=== PATIENT | female | born 1980 | race Two or more races ===

== ENCOUNTER 2023-03-20 10:44 | Emergency (ER) | payer MEDICAID, OTHER ==
[~2023-03-20] VITALS: Ht 157.5 cm; Wt 108.0 kg
[2023-03-20 11:29] LABS: Basophils # (auto) 0 10 ^3/uL (0-0.2); Basophils % (auto) 0.4 % (0.0-2.0); Eosinophils # (auto) 0.1 10 ^3/uL (0-0.8); Eosinophils % (auto) 1.9 % (0.0-7.0); Hematocrit 37.9 % (36.0-46.0); Hemoglobin 12.5 g/dL (12.2-16.2); Lymphocytes # (auto) 1.5 10 ^3/uL (0.4-5.4); Lymphocytes % (auto) 18.7 % (10.0-50.0); Mean Corpuscular Hemoglobin 27.4 pg (28.0-32.0); Mean Corpuscular Volume 83.2 fL (80.0-100.0); Monocytes # (auto) 0.5 10 ^3/uL (0-1.3); Neutrophils # (auto) 5.7 10 ^3/uL (1.6-8.6); Nucleated Red Blood Cells % 0.1 %; Red Blood Cells 4.55 10^6/uL (4.0-5.20); White Blood Cell 7.8 10^3/uL (4.4-10.8)
[2023-03-20] MEDS ORDERED: clonazePAM 0.5 MG TAB PO ONE (11:30)
[2023-03-20 11:43] LABS: Urine Bacteria None Seen /hpf (None Seen); Urine WBC None Seen /hpf (0 - 5)
[2023-03-20 11:57] LABS: Albumin 3.3 g/dL (3.4-5.0); Calcium 8.2 mg/dL (8.5-10.1); Potassium 3.7 mmol/L (3.5-5.1)
[2023-03-20 12:00] LABS: BUN/Creatinine Ratio 17.2 (10.0-20.0); Bilirubin, Total 0.4 mg/dL (0.2-1.0); Total Protein 7.2 g/dL (6.4-8.2)
[2023-03-20 12:11] LABS: Urine Specific Gravity 1.025 (1.001-1.035)
[2023-03-20 12:12] LABS: Urine Blood 2+ /uL (Negative)
[2023-03-20] MEDS ORDERED: ACETAMINOPHEN 500 MG TAB PO ONE (14:15)
[2023-03-20] MEDS ORDERED: LISI-716 PO (14:46)
[2023-03-20 14:55] VITALS: BP 162/82
== END 2023-03-20 15:00 | disposition home or self-care (01) ==
LOC: ER 10:44
DX: I16.0 Hypertensive urgency (principal); I10 Essential (primary) hypertension; R50.9 Fever, unspecified; R07.89 Other chest pain; Z98.51 Tubal ligation status
CPT/HCPCS: 36415; 71045; 80053; 81001; 84484; 85025; 93005

== ENCOUNTER 2023-03-23 00:32 | Emergency (ER) | payer MEDICAID ==
[~2023-03-23] VITALS: Ht 157.5 cm; Wt 108.0 kg
[~2023-03-23 00:32] MED LIST: LISI-716 PO
[2023-03-23 01:11] VITALS: BP 156/74
[2023-03-23 01:24] LABS: Urine Bacteria NONE SEEN /hpf (None Seen); Urine Blood 1+ /uL (Negative); Urine Mucus FEW (None Seen); Urine Specific Gravity 1.025 (1.001-1.035); Urine WBC 6 /hpf (0 - 5)
[2023-03-23 02:14] LABS: Basophils # (auto) 0 10 ^3/uL (0-0.2); Basophils % (auto) 0.5 % (0.0-2.0); Eosinophils # (auto) 0 10 ^3/uL (0-0.8); Eosinophils % (auto) 0.1 % (0.0-7.0); Hematocrit 36.1 % (36.0-46.0); Hemoglobin 11.8 g/dL (12.2-16.2); Lymphocytes # (auto) 1.8 10 ^3/uL (0.4-5.4); Lymphocytes % (auto) 20.4 % (10.0-50.0); Mean Corpuscular Hemoglobin 27.6 pg (28.0-32.0); Mean Corpuscular Hgb Conc. 32.7 g/dL (32.0-36.0); Mean Corpuscular Volume 84.3 fL (80.0-100.0); Monocytes # (auto) 0.6 10 ^3/uL (0-1.3); Monocytes % (auto) 6.8 % (0.0-12.0); Neutrophils # (auto) 6.3 10 ^3/uL (1.6-8.6); Neutrophils % (auto) 72.2 % (37.0-80.0); Nucleated Red Blood Cells % 0.1 %; Red Blood Cells 4.29 10^6/uL (4.0-5.20); Red Cell Distribution Width 14.4 % (11.8-14.3); White Blood Cell 8.8 10^3/uL (4.4-10.8)
[2023-03-23 02:21] LABS: Albumin 2.7 g/dL (3.4-5.0); BUN/Creatinine Ratio 13.9 (10.0-20.0); Calcium 8.6 mg/dL (8.5-10.1)
[2023-03-23 02:23] LABS: Bilirubin, Total 0.5 mg/dL (0.2-1.0); Total Protein 7.6 g/dL (6.4-8.2)
[2023-03-23] MEDS ORDERED: ACET-1158 PO (23:49)
[2023-03-23] MEDS ORDERED: ONDA-144 PO (23:49)
[2023-03-23] MEDS ORDERED: AZIT250T8 PO (23:49)
[2023-03-23] MEDS ORDERED: LORA10CA7 PO (23:49)
== END 2023-03-23 05:21 | disposition left against medical advice (07) ==
LOC: ER 00:32
DX: R10.13 Epigastric pain (principal); K59.00 Constipation, unspecified; Z53.21 Procedure and treatment not carried out due to patient leaving prior to being seen by health care provider
CPT/HCPCS: 36415; 80053; 81001; 83690; 85025

== ENCOUNTER 2023-03-23 17:13 | Emergency (ER) | payer MEDICAID ==
[~2023-03-23] VITALS: Ht 157.5 cm; Wt 106.2 kg
[2023-03-23 19:23] LABS: Urine Bacteria FEW /hpf (None Seen); Urine Blood 1+ /uL (Negative); Urine Hyaline Cast FEW /lpf (0 - 2); Urine Mucus FEW (None Seen); Urine Specific Gravity 1.021 (1.001-1.035); Urine WBC 4 /hpf (0 - 5)
[2023-03-23] MEDS: ONDANSETRON ODT 4 MG TAB PO ONE (21:17)
[2023-03-23] MEDS: HYDROmorphone HCL 2 MG/ML VL/or syr IM ONE (21:17)
[2023-03-23 21:23] LABS: Basophils # (auto) 0 10 ^3/uL (0-0.2); Basophils % (auto) 0.3 % (0.0-2.0); Eosinophils # (auto) 0 10 ^3/uL (0-0.8); Eosinophils % (auto) 0.1 % (0.0-7.0); Hematocrit 35.3 % (36.0-46.0); Hemoglobin 11.9 g/dL (12.2-16.2); Lymphocytes # (auto) 1.5 10 ^3/uL (0.4-5.4); Mean Corpuscular Hemoglobin 27.8 pg (28.0-32.0); Mean Corpuscular Hgb Conc. 33.7 g/dL (32.0-36.0); Mean Corpuscular Volume 82.5 fL (80.0-100.0); Monocytes # (auto) 0.6 10 ^3/uL (0-1.3); Monocytes % (auto) 6.7 % (0.0-12.0); Neutrophils # (auto) 6.9 10 ^3/uL (1.6-8.6); Neutrophils % (auto) 75.9 % (37.0-80.0); Red Blood Cells 4.27 10^6/uL (4.0-5.20); Red Cell Distribution Width 14.4 % (11.8-14.3)
[2023-03-23 21:38] LABS: Albumin 3.1 g/dL (3.4-5.0); Calcium 8.8 mg/dL (8.5-10.1); Magnesium 2.6 mg/dL (1.6-2.6); Potassium 3.2 mmol/L (3.5-5.1)
[2023-03-23 21:39] LABS: Partial Thromboplastin Time 35.8 sec (24.6-33.4)
[2023-03-23 21:41] LABS: BUN/Creatinine Ratio 9.8 (10.0-20.0); Bilirubin, Total 0.5 mg/dL (0.2-1.0); Total Protein 7.9 g/dL (6.4-8.2)
[2023-03-23] MEDS: ACETAMINOPHEN 500 MG TAB PO ONE (23:43)
[2023-03-23] MEDS: IBUPROFEN 600 MG TAB PO ONE (23:44)
[2023-03-23] MEDS ORDERED: ACET-1158 PO (23:49)
[2023-03-23] MEDS ORDERED: LORA10CA7 PO (23:49)
[2023-03-23] MEDS ORDERED: ONDA-144 PO (23:49)
[2023-03-23] MEDS ORDERED: AZIT250T8 PO (23:49)
[2023-03-24 01:01] VITALS: BP 150/95
== END 2023-03-24 01:11 | disposition home or self-care (01) ==
LOC: ER 17:13
DX: J18.9 Pneumonia, unspecified organism (principal); N83.202 Unspecified ovarian cyst, left side; E66.01 Morbid (severe) obesity due to excess calories; Z98.51 Tubal ligation status; Z88.6 Allergy status to analgesic agent; Z68.41 Body mass index [BMI] 40.0-44.9, adult; Z79.899 Other long term (current) drug therapy
CPT/HCPCS: 36415; 71045; 74176; 80053; 81001; 83605; 83690; 83735; 84484; 85025; 85610; 85730; 96372; 99285; J1170; Q0162